=== PATIENT | male | born 1945 | race Hispanic/Latino ===

== ENCOUNTER 2017-03-19 11:43 | Day surgery (SDC) | payer MEDICARE ==
[2017-03-19] MEDS ORDERED: NEOFRIN ONE (11:50)
[2017-03-19] MEDS ORDERED: MYDRIACYL ONE (11:50)
[2017-03-19] MEDS ORDERED: IOPIDINE ONE (11:50)
[2017-03-19] MEDS ORDERED: MYDRIACYL OS ONE (12:20)
[2017-03-19] MEDS ORDERED: IOPIDINE OS ONE (12:20)
[2017-03-19] MEDS ORDERED: NEOFRIN OS ONE (12:20)
[2017-03-19 13:16] VITALS: BP 148/76
== END 2017-03-19 11:44 | disposition home or self-care (01) ==
LOC: OR 11:43
PROVIDERS: ATTEND Specialist
DX: H26.491 Other secondary cataract, right eye (principal)

== ENCOUNTER 2017-04-02 11:33 | Day surgery (SDC) | payer MEDICARE ==
[~2017-04-02 11:33] MED LIST: IOPIDINE OS ONE; MYDRIACYL OS ONE; NEOFRIN OS ONE
[2017-04-02] MEDS ORDERED: NEOFRIN ONE (12:41)
[2017-04-02] MEDS ORDERED: IOPIDINE ONE (12:41)
[2017-04-02] MEDS ORDERED: IOPIDINE OS ONE (13:03)
[2017-04-02] MEDS ORDERED: NEOFRIN OS ONE (13:03)
[2017-04-02] MEDS ORDERED: MYDRIACYL OS ONE (13:03)
[2017-04-02 13:58] VITALS: BP 130/80
== END 2017-04-02 11:34 | disposition home or self-care (01) ==
LOC: OR 11:33
PROVIDERS: ATTEND Specialist
DX: H26.492 Other secondary cataract, left eye (principal)